=== PATIENT | female | born 1965 | race Caucasian/White ===

== ENCOUNTER → 2023-11-11 13:39 | Outpatient (REF) | payer BC, SELFPAY | LOC: WDC 13:39 | PROVIDERS: ATTENDING PHYSICIAN Obstetrics & Gynecology; FAMILY PHYSICIAN Nurse Practitioner Family | DX: Z12.31 Encounter for screening mammogram for malignant neoplasm of breast (principal) | CPT/HCPCS: 77063; 77067 ==

== ENCOUNTER 2023-11-25 06:45 | Day surgery (SDC) | payer BC, SELFPAY ==
[2023-11-18 09:04] LABS: Hematocrit 36.7 % (37.0-47.0); Hemoglobin 13.2 g/dL (12.0-16.0); Mean Corpuscular Hgb 30.6 pg (27.0-31.0); Mean Corpuscular Volume 85.2 fL (81.0-99.0); Mean Platelet Volume 9.5 fL (7.4-10.4); Platelet Count 296 10^3/uL (130-400); Red Blood Cell Count 4.31 10^6/uL (4.20-5.40); Red Cell Dist. Width 11.6 % (11.5-14.5); White Blood Cell Count 4.1 10^3/uL (4.8-10.8)
[2023-11-18 09:53] VITALS: BMI 26.9
[2023-11-18 10:07] LABS: Blood Urea Nitrogen 18 mg/dl (7-17); Calcium 9.6 mg/dl (8.4-10.2); Carbon Dioxide 26 mmol/L (22-30); Chloride 98 mmol/L (98-107); Estimated Creatinine Clearance 64 ml/min; Glucose 95 mg/dl (70-99); Potassium 4.7 mmol/L (3.5-5.1); Sodium 133 mmol/L (135-145); eGFR > 60.00
[2023-11-25] VITALS (14 sets, daily range): BP systolic 95–149; BP diastolic 47–98; BMI 26.9
[2023-11-25] MEDS: NORMOSOL-R 1000 IV ×2 (12:49→21:02)
[2023-11-25] MEDS: Pyridium 200 MG PO (12:55)
[2023-11-25] MEDS: HEPARIN 5000 UNITS SC (12:56)
[2023-11-25] MEDS: EMEND 40 MG PO (12:59)
[2023-11-25] MEDS: ZOFRAN 4 MG IV (17:15)
[2023-11-25] MEDS: COMPAZINE 5 MG IV (17:27)
[2023-11-25] MEDS: TORADOL 15 MG IV (21:06)
[2023-11-25] MEDS: DILAUDID 0.25 MG IV (21:08)
--- NOTE | 2023-11-25 21:34 | PTCARENOTE ---
attempted to call report x2 , unable to speak w/receiving nurse.
[2023-11-26] MEDS: TORADOL 15 MG IV ×2 (02:13→07:14)
[2023-11-26 02:51] VITALS: BP 130/74
[2023-11-26] MEDS: NORMOSOL-R 1000 IV (03:36)
[2023-11-26] MEDS: SYNTHROID 75 MCG PO (05:47)
--- NOTE | 2023-11-26 07:01 | PTCARENOTE ---
pt observed in room 21:20, assessed aaox3, drowsy but alert to speech, vs wnl, denied pain, oriented to unit.
[2023-11-26 07:11] VITALS: BP 124/77
[2023-11-26] MEDS: ZESTRIL 10 MG PO (07:14)
[2023-11-26] MEDS: ORETIC 12.5 MG PO (07:14)
--- NOTE | 2023-11-26 08:20 | W.PN.GYN ---
Today's Communication / Plan
-
Nausea resolved. Pending AM bloodwork and trial of void. Patient to be discharged in early afternoon
Physician Note
-
S:
Patient currently POD1 sp robotic supracervical hysterectomy, b/l salpingectomy, sacrocolpopexy, posterior repair and single incision sling. Patient was evaluated on AM rounds. Nausea had resolved. Denies chest pain, sob. Incisional pain controlled.
O:
Intake and Output
11/24/23 11/25/23 11/26/23 11/27/23
06:59 06:59 06:59 06:59
Intake Total 2545 / 2545
Output Total 2200 / 2200
Balance 345 / 345
Intake:
Oral fluids 120 / 120
IV fluids (Total) 2425 / 2425
Normosol 1050 / 1050
Output:
Urine, Serrano 2200 / 2200
Vital Signs
Temp Pulse Resp BP Pulse Ox
98 F 75 16 124/77 99
11/26/23 07:11 11/26/23 07:14 11/26/23 07:11 11/26/23 07:14 11/26/23 07:11
GA: well appearing female in NAD
Abd: incisions covered with dermabond, serpingous rash noted around dermabond glue, nontender, nonpruritic, no bleeding or discharge noted
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
A/P
57yoF currently stable Postop POD1 sp robotic supracervical hysterectomy, b/l salpingectomy, sacrocolpopexy, posterior repair and single incision sling
- Vitals
- strict I/Os
- Draw CBC and BMP
- DVT prophylaxis with sq heparin and SCDs
- Regular diet
- OOB ad romi
- Cara medications
- Pain medications prn
- IVF- normal saline
- Antiemetics prn
- Followup TOV; place serrano catheter if PVR >150ml
- Patien advised to remove dermabond glue in two days and if rash were to become bothersome or spread she may call the office for topical benadryl
- Discharge likely early afternoon
[2023-11-26 09:11] LABS: Hemoglobin 11.4 g/dL (12.0-16.0); Mean Corp Hgb Conc. 35.6 g/dL (33.0-37.0); Mean Corpuscular Hgb 30.9 pg (27.0-31.0); Mean Corpuscular Volume 86.7 fL (81.0-99.0); Mean Platelet Volume 9.1 fL (7.4-10.4); Platelet Count 216 10^3/uL (130-400); Red Blood Cell Count 3.69 10^6/uL (4.20-5.40); Red Cell Dist. Width 11.7 % (11.5-14.5); White Blood Cell Count 8.6 10^3/uL (4.8-10.8)
[2023-11-26 09:19] LABS: Blood Urea Nitrogen 10 mg/dl (7-17); Calcium 8.8 mg/dl (8.4-10.2); Carbon Dioxide 26 mmol/L (22-30); Chloride 103 mmol/L (98-107); Estimated Creatinine Clearance 72 ml/min; Glucose 105 mg/dl (70-99); Sodium 133 mmol/L (135-145); eGFR > 60.00
[2023-11-26] MEDS: NORMOSOL-R IV (10:21)
[2023-11-26 11:30] VITALS: BP 163/87
[2023-11-26] MEDS: TYLENOL 650 MG PO (11:43)
[2023-11-26 12:15] VITALS: BP 160/91
--- NOTE | 2023-11-26 13:48 | CM ---
Initial assessment completed with patient who lives with her 2 adult sons (25 and 28 y/o) in a [facility] story [facility] with basement, B/B on 2nd and 1/2 bath on , 1 step to enter. No DME or in-home services. 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 No
history of Psychiatric hospitalizations. Pharmacy is [facility] on [address] in [place] and PCP is Dr. Kathryn Johns. Anticipate no needs at discharge.
--- NOTE | 2023-11-26 13:53 | CM ---
Patient has been medically cleared for discharge to home with no additional skilled services. Patient's friend will transport home.
== END 2023-11-26 13:46 | disposition home or self-care (01) ==
LOC: SDS 06:45
PROVIDERS: ATTENDING PHYSICIAN Obstetrics & Gynecology; FAMILY PHYSICIAN Nurse Practitioner Family; OTHER PHYSICIAN Obstetrics & Gynecology
DX: N81.3 Complete uterovaginal prolapse (principal); N39.3 Stress incontinence (female) (male); N36.41 Hypermobility of urethra
CPT/HCPCS: 57425; 58542; 57250; 57288; 88305; 80048; 85027; 86850; 86900; 86901; 93005; C1763; C1771

== ENCOUNTER → 2024-08-03 13:57 | Outpatient (REF) | payer BC, SELFPAY | LOC: EMG 13:57 | PROVIDERS: ATTENDING PHYSICIAN Orthopaedic Surgery; FAMILY PHYSICIAN Nurse Practitioner Family | DX: R20.0 Anesthesia of skin (principal); G56.02 Carpal tunnel syndrome, left upper limb | CPT/HCPCS: 95886; 95910 ==

== ENCOUNTER → 2024-12-07 08:24 | Outpatient (REF) | payer BC, SELFPAY | LOC: WDC 08:24 | PROVIDERS: ATTENDING PHYSICIAN Nurse Practitioner Family | DX: Z12.31 Encounter for screening mammogram for malignant neoplasm of breast (principal) | CPT/HCPCS: 77063; 77067 ==